=== PATIENT | male | born 1960 | race Caucasian/White ===

== ENCOUNTER 2024-03-05 09:11 | Day surgery (SDC) | payer OTHER ==
[~2024-03-05 09:11] MED LIST: Sodium Chloride 0.9% 10 ML Syringe FLUSH PRN; Sodium Chloride 0.9% 10 ML Syringe FLUSH SCH
[2024-03-05] MEDS ORDERED: Propofol 200 MG/20 ML SDV ONE ×4 (09:48→12:17)
[2024-03-05] MEDS ORDERED: fentaNYL 100 MCG/2 ML SDV ONE (09:49)
[2024-03-05] MEDS ORDERED: Ketorolac 30 MG/ML SDV ONE (09:50)
[2024-03-05] MEDS ORDERED: dexmedeTOMIDine HCl 200 MCG/2 ML SDV ONE (09:50)
[2024-03-05] MEDS ORDERED: Ondansetron 4 MG/2 ML SDV ONE (09:50)
[2024-03-05] MEDS ORDERED: ceFAZolin 2 GM Vial ONE (09:56)
[2024-03-05] MEDS ORDERED: Midazolam 1 MG/ML 2 ML SDV ONE (10:22)
[2024-03-05] MEDS ORDERED: Labetalol 100 MG/20 ML MDV ONE (10:23)
[2024-03-05] MEDS ORDERED: Ropivacaine 0.5% 5 MG/ML 30 ML SDV ONE (10:28)
[2024-03-05] MEDS ORDERED: EPINEPHrine 1 MG/ML SDV ONE (10:30)
[2024-03-05] MEDS ORDERED: Dexamethasone 4 MG/ML 5 ML MDV ONE (10:31)
[2024-03-05] MEDS ORDERED: ceFAZolin 1 GM Vial ONE (11:24)
[2024-03-05] MEDS ORDERED: Lactated Ringers 1,000 ML ONE (11:40)
[2024-03-05] MEDS ORDERED: Lactated Ringers 1,000 ML IV ONE (12:15)
[2024-03-05] MEDS: Morphine 8 MG, EPINEPHrine 0.3 MG, Cefuroxime 750 MG, Ketorolac 30 MG, Sodium Chloride ... PRN (12:22)
[2024-03-05] MEDS: Tranexamic Acid 1,000 MG/10 ML Vial ONE (12:29)
[2024-03-05] MEDS ORDERED: fentaNYL 100 MCG/2 ML SDV IVPUSH PRN (13:10)
[2024-03-05] MEDS ORDERED: Ondansetron 4 MG/2 ML SDV IVPUSH PRN (13:10)
[2024-03-05] MEDS: Vancomycin 1 GM SDV ONE (14:10)
[2024-03-05] MEDS: Acetaminophen/HYDROcodone 325-5 MG Tab PO PRN (14:56)
[2024-03-05] MEDS: Lactated Ringers 1,000 ML IV SCH (17:12)
== END 2024-03-05 17:00 | disposition home or self-care (01) ==
LOC: JD.SDS 09:11
PROVIDERS: ATTEND Orthopaedic Surgery
DX: M17.11 Unilateral primary osteoarthritis, right knee (principal)
CPT/HCPCS: 0055T; 27447; 36415; 64447; 73560; 85730; 97110; 97161; A9270; C1713; C1776; J0171; J0690; J0697; J1100; J1885; J1921; J2250; J2270; J2405; J2704; J2795; J3010; J3370; J7120; 01402; J3490

== ENCOUNTER 2024-12-03 07:40 | Day surgery (SDC) | payer OTHER ==
[~2024-12-03 07:40] MED LIST changes: +Midazolam 1 MG/ML 2 ML SDV ONE; -Sodium Chloride 0.9% 10 ML Syringe FLUSH PRN; -Sodium Chloride 0.9% 10 ML Syringe FLUSH SCH; +ceFAZolin 2 GM Vial ONE; +propofoL 500 MG/50 ML 50 ML ONE
[2024-12-03] MEDS ORDERED: Sodium Chloride 0.9% 10 ML Syringe FLUSH PRN (07:51)
[2024-12-03] MEDS ORDERED: fentaNYL 100 MCG/2 ML SDV IVPUSH PRN (08:15)
[2024-12-03] MEDS ORDERED: Ondansetron 4 MG/2 ML SDV IVPUSH PRN (08:15)
[2024-12-03] MEDS ORDERED: ceFAZolin 2 GM Vial ONE (08:20)
[2024-12-03] MEDS ORDERED: Ropivacaine 0.5% 5 MG/ML 30 ML SDV ONE (08:20)
[2024-12-03] MEDS ORDERED: Ketorolac 30 MG/ML SDV ONE (08:21)
[2024-12-03] MEDS ORDERED: dexmedeTOMIDine HCl 200 MCG/2 ML SDV ONE (08:21)
[2024-12-03] MEDS ORDERED: Ondansetron 4 MG/2 ML SDV ONE (08:21)
[2024-12-03] MEDS: Lactated Ringers 1,000 ML IV SCH (08:35)
[2024-12-03] MEDS ORDERED: Sodium Chloride 0.9% 10 ML Syringe FLUSH SCH (09:00)
[2024-12-03] MEDS ORDERED: Lidocaine 1% 4 ML ONE (09:03)
[2024-12-03] MEDS ORDERED: Phenylephrine 1% 10 MG/ML SDV ONE (09:09)
[2024-12-03] MEDS ORDERED: Lactated Ringers 1,000 ML ONE (09:40)
[2024-12-03] MEDS ORDERED: Propofol 200 MG/20 ML SDV ONE ×2 (09:41)
[2024-12-03] MEDS: Morphine 8 MG, EPINEPHrine 0.3 MG, Cefuroxime 750 MG, Ketorolac 30 MG, Sodium Chloride ... PRN (10:11)
[2024-12-03] MEDS: VANCOmycin 1 GM SDV ONE (10:18)
[2024-12-03] MEDS: Tranexamic Acid 1,000 MG/10 ML Vial ONE (10:18)
[2024-12-03] MEDS: Acetaminophen/HYDROcodone 325-5 MG Tab PO PRN (12:11)
== END 2024-12-03 13:30 | disposition home or self-care (01) ==
LOC: JD.SDS 07:40
PROVIDERS: ATTEND Orthopaedic Surgery
DX: M17.12 Unilateral primary osteoarthritis, left knee (principal); I10 Essential (primary) hypertension; K21.9 Gastro-esophageal reflux disease without esophagitis; Z79.899 Other long term (current) drug therapy; Z88.5 Allergy status to narcotic agent; Z88.8 Allergy status to other drugs, medicaments and biological substances
CPT/HCPCS: 0055T; 27447; 73560; 97116; 97161; 97530; A9270; C1713; C1776; J0171; J0690; J0697; J1885; J2003; J2250; J2272; J2371; J2405; J2704; J2795; J7120; 01402; 64447; J3370